=== PATIENT | male | born 1955 | race Caucasian/White ===

== ENCOUNTER → 2020-03-09 | Outpatient (CLI) | payer BC ==
--- NOTE | 2020-03-09 09:53 | Diagnostic Imaging Report ---
TECHNIQUE: Magnetic resonance imaging of the LEFT KNEE was performed WITHOUT injected contrast. HISTORY: Knee pain COMPARISON: None available. FINDINGS: LIGAMENTS AND TENDONS: ACL: Degeneration without tear. PCL: Intact Collateral ligaments: Intact Iliotibial band: Unremarkable Popliteal tendon: Intact Extensor mechanism: Intact JOINT: Menisci: Medial: Complex tearing of the body and posterior horn with extrusion Lateral: Degenerative signal in the anterior and posterior horns. Articular Cartilage: Medial Compartment: Diffuse high-grade cartilage loss with areas of full-thickness erosion. Lateral Compartment: Diffuse intermediate cartilage loss with areas of full-thickness erosion. Patellofemoral Compartment: Diffuse high-grade cartilage loss. Joint Fluid: Moderate joint effusion with synovitis. BONE: Subchondral cystic change in the lateral compartment. No acute fracture. SOFT TISSUES: Otherwise, unremarkable. IMPRESSION: Medial meniscus complex tearing with extrusion. 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 Signed by: Dr. Rodolfo Gaviria M.D. on 03/09/2020 9:50 AM
== END ==
LOC: MRI 07:36
PROVIDERS: ATTEND Specialist
DX: S83.242A Other tear of medial meniscus, current injury, left knee, initial encounter (principal)

== ENCOUNTER 2021-02-10 15:55 | Outpatient (RCR) | payer BC | END 2021-02-14 | LOC: PT 15:55 | PROVIDERS: ATTEND Specialist | DX: M17.11 Unilateral primary osteoarthritis, right knee (principal) ==

== ENCOUNTER 2021-02-16 16:04 | Outpatient (RCR) | payer BC | END 2021-03-16 | LOC: PT 16:04 | PROVIDERS: ATTEND Specialist | DX: M17.11 Unilateral primary osteoarthritis, right knee (principal) ==